=== PATIENT | female | born 1980 | race Caucasian/White ===

== ENCOUNTER → 2016-10-17 | Outpatient (REF) | payer OTHER | LOC: M SFHCWAGY 10:09 | PROVIDERS: ATTEND Nurse Practitioner Women's Health | DX: Z01.419 Encounter for gynecological examination (general) (routine) without abnormal findings (principal); Z11.51 Encounter for screening for human papillomavirus (HPV) ==

== ENCOUNTER → 2016-12-17 | Outpatient (REF) | payer OTHER ==
[~2016-12-17] MED LIST: CLAR1TAB2 PO; ORTHTAB15 PO
[2016-12-17 18:42] LABS: MEAN CORPUSCULAR VOLUME 94.1 fl (80.0-96.0); RED CELL DISTRIBUTION WIDTH 12.1 % (11.5-14.5); WHITE BLOOD COUNT 9.4 K/mm3 (4.0-10.0)
[2016-12-17 18:46] LABS: ALBUMIN 3.7 GM/DL (3.2-5.2); ALBUMIN/GLOBULIN RATIO 0.93 (1.00-1.93); ALKALINE PHOSPHATASE 65 U/L (45-117); ALT/SGPT 25 U/L (12-78); ANION GAP 10 MEQ/L (8-16); AST/SGOT 17 U/L (15-37); BILIRUBIN,TOTAL 0.3 MG/DL (0.2-1.0); BLOOD UREA NITROGEN 15 MG/DL (7-18); CALCIUM LEVEL 7.9 MG/DL (8.5-10.1); CARBON DIOXIDE LEVEL 25 MEQ/L (21-32); CHLORIDE LEVEL 107 MEQ/L (98-107); CHOLESTEROL LEVEL 172 MG/DL (<200); CREATININE FOR GFR 0.66 MG/DL (0.55-1.02); FREE T4 1.74 NG/DL (0.76-1.46); GLOMERULAR FILTRATION RATE > 60.0 (>60); GLUCOSE, FASTING 68 MG/DL (70-105); SODIUM LEVEL 142 MEQ/L (136-145); TOTAL PROTEIN 7.7 GM/DL (6.4-8.2); TRIGLYCERIDES LEVEL 118 MG/DL (<150)
== END ==
LOC: M SFHCLERA 14:44
PROVIDERS: ATTEND Family Medicine
DX: R53.83 Other fatigue (principal); R21 Rash and other nonspecific skin eruption; Z13.220 Encounter for screening for lipoid disorders

== ENCOUNTER → 2017-01-17 | Outpatient (CLI) | payer OTHER ==
--- NOTE | 2017-01-17 15:05 | REP ---
THYROID SONOGRAPHY: HISTORY: Borderline abnormal thyroid function tests FINDINGS: Thyroid isthmus measures 0.2 cm thickness. Right lobe dimensions are normal at 4.0 x 1.5 x 1.0 cm. The left thyroid lobe measures 4.3 x 2.1 x 1.8 cm. There is a 0.4 cm hypoechoic area in the lower pole of the right lobe consistent with a complex nodule. There is a colloid cyst containing some internal debris with overall dimensions of 3.9 x 1.5 x 1.6 cm in the left lobe. IMPRESSION: Large colloid cyst left thyroid lobe. No suspicious thyroid nodule. Signed by Aleksandar David MD 01/17/2017 03:53 P
== END ==
LOC: M LRY 14:05
PROVIDERS: ATTEND Family Medicine
DX: R94.6 Abnormal results of thyroid function studies (principal); E04.1 Nontoxic single thyroid nodule

== ENCOUNTER → 2017-03-21 | Outpatient (CLI) | payer OTHER ==
[2017-03-21 10:04] LABS: CONTROL LINE UCG INT CTR LINE PRESENT
== END ==
LOC: M LAB 09:15
PROVIDERS: ATTEND Orthopaedic Surgery
DX: Z01.812 Encounter for preprocedural laboratory examination (principal)

== ENCOUNTER 2017-03-26 05:52 | Day surgery (SDC) | payer OTHER ==
[~2017-03-26] VITALS: Ht 162.6 cm; Wt 88.9 kg
[2017-03-26] MEDS ORDERED: LIDOCAINE 1% MDV 20ML VIAL SQ PRN (06:00)
[2017-03-26] MEDS ORDERED: LR 1,000 ML IV SCH ×2 (06:00→10:30)
[2017-03-26] MEDS ORDERED: CelecoXIB 400 MG CAP PO ONE (06:00)
[2017-03-26] MEDS ORDERED: PERCOCET 5MG/325MG TAB PO ONE (06:15)
[2017-03-26] MEDS ORDERED: PREGABALIN 75 MG CAP(LYRICA) PO ONE (06:15)
[2017-03-26] MEDS ORDERED: THROMBIN SOLN 20,000 UNITS KIT As Ordered ONE (06:37)
[2017-03-26] MEDS ORDERED: BUPIVACAINE/EPIN 0.25% 30 ML VIAL As Ordered ONE (06:38)
[2017-03-26] MEDS ORDERED: BACITRACIN PWD 50,000 UNITS VIAL As Ordered ONE (06:38)
[2017-03-26 06:40] LABS: CONTROL LINE UCG INT CTR LINE PRESENT
[2017-03-26] MEDS ORDERED: GLYCOPYRROLATE INJ 0.2 MG/ML 2 ML VIAL As Ordered ONE ×2 (07:11→09:30)
[2017-03-26] MEDS ORDERED: ROCURONIUM BROMIDE 50 MG/5 ML VIAL/SYRINGE As Ordered ONE (07:11)
[2017-03-26] MEDS ORDERED: fentaNYL 100 MCG/2 ML INJECTION (J3010) As Ordered ONE (07:11)
[2017-03-26] MEDS ORDERED: PROPOFOL 200 MG/20 ML VIAL As Ordered ONE (07:11)
[2017-03-26] MEDS ORDERED: MIDAZOLAM INJ 2 MG/2 ML VIAL (J2250) As Ordered ONE (07:11)
[2017-03-26] MEDS ORDERED: dexameTHASONE 4 MG/ML 1ML VIAL (J1100) As Ordered ONE (08:07)
[2017-03-26] MEDS ORDERED: PHENYLEPHRINE INJ 10MG/ML VIAL (J2370) As Ordered ONE (08:09)
[2017-03-26] MEDS ORDERED: BUPIVACAINE HCL 0.5% 30 ML VIAL As Ordered ONE (09:22)
[2017-03-26] MEDS ORDERED: BUPIVACAINE LIPOSOME/PF 1.3% 20 ML VIAL (13.3MG/ML)(EXPAREL) As Ordered ONE (09:22)
[2017-03-26] MEDS ORDERED: ONDANSETRON 4MG/2ML VIAL (J2405) As Ordered ONE (09:30)
[2017-03-26] MEDS ORDERED: NEOSTIGMINE 10 MG/10 ML VIAL (J2710) As Ordered ONE (09:30)
[2017-03-26] MEDS ORDERED: HYDROmorphone HCL 2 MG/ML 1ML VIAL (J1170) As Ordered ONE (09:30)
[2017-03-26] MEDS ORDERED: D5W/LR 1,000 ML IV SCH (10:15)
[2017-03-26] MEDS ORDERED: PERCOCET 5MG/325MG TAB PO PRN ×3 (10:15→10:30)
[2017-03-26] MEDS ORDERED: PROMETHAZINE INJ 25 MG/ML VIAL (J2550) IV PRN (10:15)
[2017-03-26] MEDS ORDERED: HYDROmorphone HCL 1 MG/ML SYRINGE (J1170) IV PRN ×2 (10:30)
[2017-03-26] MEDS ORDERED: fentaNYL 100 MCG/2 ML INJECTION (J3010) IV PRN (10:30)
[2017-03-26] MEDS ORDERED: ONDANSETRON 4MG/2ML VIAL (J2405) IV PRN (10:30)
[2017-03-26 11:20] VITALS: BP 132/76
[2017-03-26 11:50] VITALS: BP 120/64
[2017-03-26 13:35] VITALS: BP 134/70
--- NOTE | 2017-03-26 13:40 | REP ---
Clinical: Intraoperative assessment. Technique: Prone cross-table lateral intraoperative view of the lumbar spine. Findings: Single intraoperative view of the lumbar spine demonstrates probe via posterior approach at the L4-5 interspinous level. Impression: Probe at the L4-5 interspinous level. Signed by Niko Bradley MD 03/26/2017 01:31 P
[2017-03-26 15:49] VITALS: BP 128/60
[2017-03-26] MEDS ORDERED: PREGABALIN 50 MG CAP (LYRICA) PO SCH (21:00)
[2017-03-27] MEDS ORDERED: CelecoXIB (CeleBREX) 100 MG CAP PO SCH (09:00)
--- NOTE | 2017-03-27 10:34 | RO ---
DATE OF PROCEDURE: 03/26/2017 PREOPERATIVE DIAGNOSIS: Right lower extremity radiculopathy secondary to right-sided disc bulge at L4-5. POSTOPERATIVE DIAGNOSIS: Right lower extremity radiculopathy secondary to right-sided disc bulge at L4-5. SURGEON: Osorio Lan MD FILAMENT [employer] FABRICATOR: Fermin Stewart PA-C ANESTHESIA: General. ESTIMATED BLOOD LOSS: Less than 40 mL, replaced with Crystalloid. COMPLICATIONS: None. PROCEDURE: Right L4-5 microdiscectomy. INDICATIONS: Sabi the 36-year-old female previous history of cauda equina syndrome secondary to large disc bulge. MEDICAL HISTORY: Significant for large disc herniation of L4-5 that resulted in cauda equina and subsequently decompressive surgery in 2004 time frame. She developed adjacent level disc herniation on the right of L4-5 and has elected for operative intervention. Consent reviewed in detail with the patient, including ignacio discussion of the pathology involved, the procedure proposed, alternatives, including doing nothing or epidural injections, risks including but not limited to pain, failure, incomplete relief, need for more surgery and other issues such as nerve injury, infection or other problems. The patient agreed to proceed. DESCRIPTION OF PROCEDURE: Identified holding area, site and side verified, brought to the operating room. General endotracheal anesthesia was administered. She was positioned for exposure of the lumbar spine in the Lucio frame. Knees were slightly flexed. Axillary rolls were utilized. Once I and the general machine operator were comfortable with the patient's positioning, she was sterilely prepped and draped in usual fashion. Time-out was accomplished. I stood on the patient's right, Mr. Stewart on the patient's left. The first portion of the procedure, I conducted using 3.5 loupe magnification. The incision was based on bony landmarks and her previous incision. The incision was infiltrated by Mr. Stewart with 0.25% Marcaine with epinephrine and then I made the incision with a 10 blade knife, developed down through skin and subcuticular tissues to the posterior lumbar fascia. Scarring was appreciated at the inferior aspect of the incision, which was approximately 6 cm long. Next, the posterior lumbar fascia was reflected off of the spinous process of 4 and 5 on the patient's right side, and I dissected the paraspinals along the lamina of 4 and over the L4-5 facet complex on the right side. Next, the high-speed bur was utilized to drill a divot into the lamina of L4 and Miranda-Chris probe was placed into the divot. A cross-table lateral x-ray was taken to verify the level using the probe. Next, once this was accomplished, my loupe and headlamp were removed and the operating microscope was brought in for additional portions of the procedure. Mr. Stewart looked through oculars on the left side of the scope and I through oculars on the right side of the scope, use of the scope facilitated safe use of the high-speed bur. The high-speed bur was utilized to implement a right unilateral laminotomy at the L4 level extending superiorly toward the bare area, preserving more than 70% of the L4-5 facet complex and inferiorly toward the bare area of 5. I elevated the ligamentum flavum with curved curette and then removed ligamentum flavum from the laminotomy using Kerrisons #2 and #3. The thecal sac was directly visualized. Using a Miranda-Chris, I swept the thecal sac medially exposing the disc herniation, which appeared to be over the shoulder. I then placed a suction Marshall, which Mr. Stewart assisted in placement of and retraction of. Bipolar cautery was utilized for hemostasis of epidurals around the disc bulge. An 11 blade knife was utilized to open posterior annulus. Relatively large disc extrusion was removed in piecemeal fashion using Canales pituitaries and pituitaries. A flat angled probe was utilized to probe the subannular space to make sure there was no more extruded viable disc material. Pituitaries were utilized in the interspace removing additional friable disc material. Bipolar cautery was utilized for hemostasis. Next, irrigation was accomplished. The wound was inspected for bleeding. No active bleeding was accomplished. Next, we did use Exparel 20 mL mixed with Marcaine 30 mL 0.5%. This was injected in along fascial planes around the wound for perioperative pain control. All counts were correct. All thrombin Gelfoam was removed at the conclusion the case. No active bleeding was appreciated at the conclusion of the case. Posterior lumbar fascia reapproximated with interrupted stitch. Deep dermis with interrupted stitch. Pernio dressing was utilized on skin. Next, the patient was then moved to the hospital bed, extubated, moved to recovery room in good condition moving all four extremities. For further details, please refer to medical record. Mr. Stewart was present and participated in the entirety case in capacity of assistant loan processor.
== END 2017-03-26 18:45 | disposition home or self-care (01) ==
LOC: M SDC 05:52 → M PED 11:01 → M SDC 18:45
PROVIDERS: ATTEND Orthopaedic Surgery
DX: M51.16 Intervertebral disc disorders with radiculopathy, lumbar region (principal); E04.1 Nontoxic single thyroid nodule; R06.83 Snoring; Z79.3 Long term (current) use of hormonal contraceptives; Z91.09 Other allergy status, other than to drugs and biological substances
CPT/HCPCS: 36415; 63030; 72110; 84703; 86850; 86900; 86901; 88304; 96374; 96376; J0690; J1100; J1170; J2250; J2370; J2405; J2710; J3010

== ENCOUNTER → 2017-04-17 | Outpatient (CLI) | payer OTHER | LOC: M LAB 10:59 | PROVIDERS: ATTEND Nurse Practitioner Family | DX: R94.6 Abnormal results of thyroid function studies (principal) ==

== ENCOUNTER → 2017-07-11 | Outpatient (CLI) | payer OTHER | LOC: M LRY 13:36 | DX: E04.1 Nontoxic single thyroid nodule (principal); R92.8 Other abnormal and inconclusive findings on diagnostic imaging of breast | CPT/HCPCS: 76536 ==

== ENCOUNTER → 2017-08-24 | Outpatient (CLI) | payer OTHER ==
[2017-08-24 13:29] LABS: BASO % 0.1 % (0.0-1.0); EOS # 0.3 10^3/uL (0.0-0.50); HEMATOCRIT 38.5 % (36.0-47.0); HEMOGLOBIN 12.6 g/dl (12.0-15.5); IMMATURE GRANULOCYTE % 0.3 % (0-3.0); LYMPH # 3.1 10^3/uL (1.5-4.5); LYMPH % 42.6 % (24.0-44.0); MEAN CORPUSCULAR HEMOGLOBIN 29.6 pg (27.0-33.0); MEAN CORPUSCULAR HGB CONC 32.7 g/dl (32.0-36.5); MEAN CORPUSCULAR VOLUME 90.6 fl (80.0-96.0); MONO # 0.6 10^3/uL (0.0-0.8); MONO % 7.9 % (0.0-5.0); NEUTROPHILS # 3.3 10^3/uL (1.8-7.7); NEUTROPHILS % 45.1 % (36.0-66.0); PLATELET COUNT, AUTOMATED 256 10^3/uL (150-450); RED BLOOD COUNT 4.25 10^6/uL (4.00-5.40); RED CELL DISTRIBUTION WIDTH 11.7 % (11.5-14.5); WHITE BLOOD COUNT 7.3 10^3/uL (4.0-10.0)
[2017-08-24 13:57] LABS: C REACTIVE PROTEIN QUANTITATIV 0.67 MG/DL (0.00-0.30)
[2017-08-24 14:02] LABS: ERYTHROCYTE SEDIMENTATION RATE 21 mm/hr (0-20)
== END ==
LOC: M LAB 12:57
DX: R76.8 Other specified abnormal immunological findings in serum (principal)
CPT/HCPCS: 84443

== ENCOUNTER → 2017-10-18 | Outpatient (REF) | payer OTHER | LOC: M SFHCWAGY 15:35 | DX: Z12.4 Encounter for screening for malignant neoplasm of cervix (principal) ==

== ENCOUNTER → 2017-12-21 | Outpatient (CLI) | payer OTHER | LOC: M LAB 09:41 | DX: E04.1 Nontoxic single thyroid nodule (principal) ==

== ENCOUNTER → 2017-12-28 | Outpatient (REF) | payer OTHER ==
[2017-12-28 19:44] LABS: FREE T4 1.12 NG/DL (0.76-1.46)
== END ==
LOC: M SFHCLERA 09:53
DX: R79.89 Other specified abnormal findings of blood chemistry (principal)

== ENCOUNTER → 2018-02-22 | Outpatient (REF) | payer OTHER ==
[2018-02-22 19:56] LABS: FREE T4 1.01 NG/DL (0.76-1.46)
== END ==
LOC: M SFHCLERA 09:15
DX: E03.9 Hypothyroidism, unspecified (principal); R53.81 Other malaise
CPT/HCPCS: 84443

== ENCOUNTER → 2018-10-30 | Outpatient (CLI) | payer OTHER ==
[~2018-10-30] MED LIST changes: +ORTH1TAB9 PO; -ORTHTAB15 PO
--- NOTE | 2018-10-30 16:38 | REPMRS ---
Patient History The patient states she had a clinical breast exam in 10/2018. Patient is nulliparous. No known family history of cancer. Taking hormonal contraceptives for 23 years beginning at age 15. Digital Woman Screen Mammo: October 30, 2018 - Exam #: [id number] Bilateral CC and MLO view(s) were taken. Technologist: Liseth Jay, Technologist No prior studies available for comparison. FINDINGS: The breast tissue is almost entirely fat. There is no evidence of dominant mass, architectural distortion, or grouped microcalcification typical of malignancy. Assessment: BI-RADS/ACR category 1 mammogram. Negative Mammogram. Recommendation Routine screening mammogram of both breasts in 1 year (for women over age 40). This patient's Lifetime Breast Cancer RIsk is estimated at 13.5 %. This mammogram was interpreted with the aid of an FDA-approved computer-aided dectection system. Electronically Signed By: Álvaro David MD 10/30/18 1273
== END ==
LOC: M WHC 15:25
PROVIDERS: ATTEND Nurse Practitioner Women's Health
DX: Z12.31 Encounter for screening mammogram for malignant neoplasm of breast (principal); Z79.3 Long term (current) use of hormonal contraceptives
CPT/HCPCS: 77067; G0463

== ENCOUNTER → 2018-11-10 | Outpatient (REF) | payer OTHER ==
[2018-11-10 13:31] LABS: FREE T4 1.22 NG/DL (0.76-1.46); THYROID STIMULATING HORMONE 6.07 uIU/ML (0.358-3.740)
== END ==
LOC: M SFHCLERA 08:33
PROVIDERS: ATTEND Family Medicine
DX: E03.9 Hypothyroidism, unspecified (principal)

== ENCOUNTER → 2019-01-13 | Outpatient (REF) | payer OTHER ==
[2019-01-13 20:37] LABS: FREE T4 1.26 NG/DL (0.76-1.46); THYROID STIMULATING HORMONE 4.25 uIU/ML (0.358-3.740)
[2019-01-13 20:41] LABS: HEMOGLOBIN A1c 5.4 %
== END ==
LOC: M SFHCLERA 16:54
PROVIDERS: ATTEND Family Medicine
DX: E03.9 Hypothyroidism, unspecified (principal); E66.9 Obesity, unspecified

== ENCOUNTER → 2019-07-09 | Outpatient (REF) | payer OTHER ==
[2019-07-09 12:38] LABS: FREE T4 0.97 NG/DL (0.76-1.46); THYROID STIMULATING HORMONE 7.5 uIU/ML (0.358-3.740)
== END ==
LOC: M SFHCLERA 08:13
PROVIDERS: ATTEND Family Medicine
DX: E03.9 Hypothyroidism, unspecified (principal)

== ENCOUNTER → 2019-10-15 | Outpatient (REF) | payer OTHER ==
[2019-10-15 16:42] LABS: FREE T4 0.99 NG/DL (0.76-1.46); THYROID STIMULATING HORMONE 5.47 uIU/ML (0.358-3.740)
== END ==
LOC: M SFHCLERA 11:05
PROVIDERS: ATTEND Family Medicine
DX: E03.9 Hypothyroidism, unspecified (principal)

== ENCOUNTER → 2019-11-03 | Outpatient (CLI) | payer OTHER ==
--- NOTE | 2019-11-03 16:59 | REPMRS ---
Patient History The patient states she had a clinical breast exam in October 2019. No known family history of cancer. Taking hormonal contraceptives for 23 years beginning at age 15. Digital Woman Screen Mammo: November 03, 2019 - Exam #: [id number] Bilateral CC and MLO view(s) were taken. Technologist: Marta Sanchez, Technologist Prior study comparison: October 30, 2018, bilateral digital woman screen mammo performed at [facility]. FINDINGS: The breast tissue is almost entirely fat. The Volpara volumetric breast density category is: A. There are stable intramammary lymph nodes bilaterally. There has been no change in the appearance of the mammogram from the prior studies. There is no interval development of dominant mass, architectural distortion, or grouped microcalcification typical of malignancy. 3-D tomosynthesis shows no additional findings. Assessment: BI-RADS/ACR category 2 mammogram. Benign Findings. Recommendation Routine screening mammogram of both breasts in 1 year (for women over age 40). This patient's Lifetime Breast Cancer RIsk is estimated at 13.4 %. This mammogram was interpreted with the aid of an FDA-approved computer-aided dectection system. Electronically Signed By: Álvaro David MD 11/03/19 0131
== END ==
LOC: M WHC 15:03
PROVIDERS: ATTEND Nurse Practitioner Women's Health
DX: Z12.31 Encounter for screening mammogram for malignant neoplasm of breast (principal)
CPT/HCPCS: 77063; 77067; G0463

== ENCOUNTER → 2020-07-23 | Outpatient (CLI) | payer OTHER ==
[2020-07-23 13:24] LABS: BASO % 0.4 % (0.0-1.0); EOS # 0.1 10^3/uL (0.0-0.5); EOS % 1.7 % (0.0-3.0); HEMATOCRIT 37.5 % (36.0-47.0); HEMOGLOBIN 12.4 g/dl (12.0-15.5); LYMPH # 3.1 10^3/uL (1.5-5.0); LYMPH % 45.3 % (24.0-44.0); MEAN CORPUSCULAR HEMOGLOBIN 30.5 pg (27.0-33.0); MEAN CORPUSCULAR HGB CONC 33.1 g/dl (32.0-36.5); MEAN CORPUSCULAR VOLUME 92.4 fl (80.0-96.0); MONO # 0.5 10^3/uL (0.0-0.8); MONO % 6.9 % (2.0-8.0); NEUTROPHILS # 3.1 10^3/uL (1.5-8.5); NEUTROPHILS % 45.4 % (36.0-66.0); PLATELET COUNT, AUTOMATED 242 10^3/uL (150-450); RED BLOOD COUNT 4.06 10^6/uL (4.00-5.40); WHITE BLOOD COUNT 6.9 10^3/uL (4.0-10.0)
[2020-07-23 13:54] LABS: BLOOD UREA NITROGEN 22 MG/DL (7-18); CARBON DIOXIDE LEVEL 29 MEQ/L (21-32); CHLORIDE LEVEL 109 MEQ/L (98-107); CHOLESTEROL LEVEL 158 MG/DL (<200); CHOLESTEROL RISK RATIO 2.821 (<5); CREATININE FOR GFR 0.63 MG/DL (0.55-1.30); FREE T4 1.23 NG/DL (0.76-1.46); GLOMERULAR FILTRATION RATE > 60.0 (>58); GLUCOSE, FASTING 82 MG/DL (70-100); HDL CHOLESTEROL 56 MG/DL (>40); LDL CHOLESTEROL 88 MG/DL (<100); NON-HDL-C 102 MG/DL; POTASSIUM SERUM 4.2 MEQ/L (3.5-5.1); SODIUM LEVEL 141 MEQ/L (136-145); TRIGLYCERIDES LEVEL 72 MG/DL (<150)
[2020-07-23 14:25] LABS: HEMOGLOBIN A1c 5.2 %
== END ==
LOC: M LAB 11:41
PROVIDERS: ATTEND Family Medicine
DX: E03.9 Hypothyroidism, unspecified (principal); E66.9 Obesity, unspecified; Z68.32 Body mass index [BMI] 32.0-32.9, adult

== ENCOUNTER → 2020-11-03 | Outpatient (CLI) | payer OTHER ==
--- NOTE | 2020-11-03 15:43 | REPMRS ---
Patient History The patient states she had a clinical breast exam in 11/2020. Patient is nulliparous. No known family history of cancer. Taking hormonal contraceptives for 24 years beginning at age 15. Patient states no breast complaints today. Patient has signed MRS History Sheet. Digital Woman Screen Mammo: November 03, 2020 - Exam #: [id number] Bilateral CC and MLO view(s) were taken. Technologist: Liseth Jay, Technologist Prior study comparison: November 03, 2019, bilateral digital woman screen mammo performed at [facility]. October 30, 2018, bilateral digital woman screen mammo performed at [facility]. FINDINGS: There are scattered fibroglandular densities. Screening. Digital screening (2D) mammography was performed bilaterally in the CC and MLO projections. Additionally, breast tomosynthesis (3D mammography) was performed bilaterally in the CC and MLO projections. Todays exam was compared to the prior exam/exams. By history, the patient has no complaints of a palpable breast abnormality or other significant breast complaints. The breasts are unchanged in size and shape. There are no amol-soft tissue densities or spiculated masses. There is no internal architectural distortion. Once again, stable benign appearing calcifications are seen.There are no suspicious amol-calcific clusters. Skin thickening or nipple retraction is not present. IMPRESSION: BI-RADS Category 2- Benign Findings. There is no evidence of malignant alteration of the breasts. Followup examination recommended in one year. The Volpara volumetric breast density category is B, there are scattered areas of fibroglandular densities. This mammogram was read with the assistance of [facility] [employer],an FDA approved computer aided detection system for mammography. The lifetime Tyrer-Cuzick score is 13.3 % Negative x-ray reports should not delay surgical consultation if a dominant or clinically suspicious mass is present. Not all breast cancers can be identified by mammography. Therefore, we recommend that you continue to perform regular breast self-examination and physical examination and then promptly contact your physician of any concerns or changes. Adenosis and dense breasts may obscure an underlying neoplasm. Assessment: BI-RADS/ACR category 2 mammogram. Benign Findings. Recommendation Routine screening mammogram of both breasts in 1 year. Electronically Signed By: Nba Munoz DO 11/03/20 1414
== END ==
LOC: M WHC 13:58
PROVIDERS: ATTEND Nurse Practitioner Women's Health
DX: Z12.31 Encounter for screening mammogram for malignant neoplasm of breast (principal); Z12.4 Encounter for screening for malignant neoplasm of cervix
CPT/HCPCS: 77063; 77067; 87624; G0123; G0463

== ENCOUNTER → 2020-11-03 | Outpatient (REF) | payer OTHER | LOC: M SFHCWAGY 19:13 | PROVIDERS: ATTEND Nurse Practitioner Women's Health | DX: Z12.4 Encounter for screening for malignant neoplasm of cervix (principal) ==

== ENCOUNTER → 2021-04-08 | Outpatient (CLI) | payer OTHER ==
[2021-04-08 10:26] LABS: FREE T4 1.34 NG/DL (0.76-1.46); THYROID STIMULATING HORMONE 2.36 uIU/ML (0.358-3.740)
== END ==
LOC: M LAB 08:45
PROVIDERS: ATTEND Family Medicine
DX: E03.9 Hypothyroidism, unspecified (principal)

== ENCOUNTER → 2021-10-10 | Outpatient (CLI) | payer OTHER ==
[2021-10-10 17:38] LABS: ALBUMIN 3.7 GM/DL (3.2-5.2); ALT/SGPT 28 U/L (12-78); BILIRUBIN,TOTAL 0.3 MG/DL (0.2-1.0); BLOOD UREA NITROGEN 20 MG/DL (7-18); CALCIUM LEVEL 9.2 MG/DL (8.5-10.1); CARBON DIOXIDE LEVEL 28 MEQ/L (21-32); CHLORIDE LEVEL 108 MEQ/L (98-107); CHOLESTEROL LEVEL 151 MG/DL (<200); CHOLESTEROL RISK RATIO 2.745 (<5); CREATININE FOR GFR 0.71 MG/DL (0.55-1.30); FREE T4 1.26 NG/DL (0.76-1.46); GLOMERULAR FILTRATION RATE > 60.0 (>58); GLUCOSE, FASTING 90 MG/DL (70-100); HDL CHOLESTEROL 55 MG/DL (>40); LDL CHOLESTEROL 79 MG/DL (<100); NON-HDL-C 96 MG/DL; POTASSIUM SERUM 3.7 MEQ/L (3.5-5.1); SODIUM LEVEL 141 MEQ/L (136-145); TOTAL PROTEIN 7.5 GM/DL (6.4-8.2); TRIGLYCERIDES LEVEL 84 MG/DL (<150)
[2021-10-10 17:50] LABS: BASO # 0.1 10^3/uL (0.0-0.2); BASO % 0.5 % (0.0-1.0); EOS # 0.2 10^3/uL (0.0-0.5); EOS % 2.4 % (0.0-3.0); HEMATOCRIT 37.4 % (36.0-47.0); HEMOGLOBIN 12.7 g/dl (12.0-15.5); LYMPH # 3.5 10^3/uL (1.5-5.0); LYMPH % 38.7 % (24.0-44.0); MEAN CORPUSCULAR HEMOGLOBIN 31.4 pg (27.0-33.0); MEAN CORPUSCULAR VOLUME 92.3 fl (80.0-96.0); MONO # 0.7 10^3/uL (0.0-0.8); MONO % 7.8 % (2.0-8.0); NEUTROPHILS # 4.6 10^3/uL (1.5-8.5); NEUTROPHILS % 50.4 % (36.0-66.0); PLATELET COUNT, AUTOMATED 298 10^3/uL (150-450); RED BLOOD COUNT 4.05 10^6/uL (4.00-5.40); WHITE BLOOD COUNT 9.1 10^3/uL (4.0-10.0)
[2021-10-10 19:14] LABS: HEMOGLOBIN A1c 4.9 %
== END ==
LOC: M LAB 16:07
PROVIDERS: ATTEND Student in an Organized Health Care Education/Training Program
DX: E03.9 Hypothyroidism, unspecified (principal); E66.9 Obesity, unspecified; Z79.899 Other long term (current) drug therapy

== ENCOUNTER → 2022-01-22 | Outpatient (CLI) | payer OTHER | LOC: M WHC 08:58 | PROVIDERS: ATTEND Obstetrics & Gynecology | DX: Z12.31 Encounter for screening mammogram for malignant neoplasm of breast (principal) ==

== ENCOUNTER → 2022-01-22 | Outpatient (REF) | payer OTHER | LOC: M PLALAB 11:36 | PROVIDERS: ATTEND Obstetrics & Gynecology | DX: Z01.419 Encounter for gynecological examination (general) (routine) without abnormal findings (principal) ==

== ENCOUNTER → 2022-09-01 | Outpatient (CLI) | payer OTHER ==
[2022-09-01 10:05] LABS: BLOOD UREA NITROGEN 15 MG/DL (9-23); CALCIUM LEVEL 8.6 MG/DL (8.5-10.1); CARBON DIOXIDE LEVEL 26 MMOL/L (20-31); CHLORIDE LEVEL 107 MMOL/L (98-107); CREATININE FOR GFR 0.65 MG/DL (0.55-1.30); GLOMERULAR FILTRATION RATE > 60.0 (>58); GLUCOSE, FASTING 94 MG/DL (60-100); POTASSIUM SERUM 3.9 MMOL/L (3.5-5.1); SODIUM LEVEL 139 MMOL/L (136-145)
== END ==
LOC: M LAB 08:59
PROVIDERS: ATTEND Student in an Organized Health Care Education/Training Program
DX: I10 Essential (primary) hypertension (principal)

== ENCOUNTER → 2022-12-22 | Outpatient (CLI) | payer OTHER ==
[2022-12-22 09:25] LABS: ALBUMIN 3.5 G/DL (3.2-5.2); ALKALINE PHOSPHATASE 57 U/L (46-116); ALT/SGPT 16 U/L (7.0-40); AST/SGOT 11 U/L (<34); BILIRUBIN,TOTAL 0.5 MG/DL (0.3-1.2); BLOOD UREA NITROGEN 12 MG/DL (9-23); CALCIUM LEVEL 8.6 MG/DL (8.5-10.1); CARBON DIOXIDE LEVEL 27 MMOL/L (20-31); CHLORIDE LEVEL 106 MMOL/L (98-107); CHOLESTEROL LEVEL 169 MG/DL (<200); CHOLESTEROL RISK RATIO 3.01 (<5); CREATININE FOR GFR 0.64 MG/DL (0.55-1.30); GLOMERULAR FILTRATION RATE > 60.0 (>58); GLUCOSE, FASTING 90 MG/DL (60-100); LDL CHOLESTEROL 92.6 MG/DL (<100); SODIUM LEVEL 140 MMOL/L (136-145); TOTAL PROTEIN 7.1 G/DL (5.7-8.2); TRIGLYCERIDES LEVEL 102 MG/DL (<150)
[2022-12-22 09:27] LABS: FREE T4 0.99 NG/DL (0.89-1.76); THYROID STIMULATING HORMONE 3.194 uIU/ML (0.55-4.78)
== END ==
LOC: M LAB 08:08
PROVIDERS: ATTEND Student in an Organized Health Care Education/Training Program
DX: I10 Essential (primary) hypertension (principal)

== ENCOUNTER → 2023-01-24 | Outpatient (CLI) | payer OTHER | LOC: M WHC 13:41 | PROVIDERS: ATTEND Obstetrics & Gynecology | DX: Z12.31 Encounter for screening mammogram for malignant neoplasm of breast (principal) ==

== ENCOUNTER → 2023-11-23 | Outpatient (CLI) | payer OTHER ==
[2023-11-23 09:11] LABS: BASO % 0.5 % (0.0-1.0); EOS # 0.3 10^3/uL (0.0-0.5); EOS % 4.5 % (0.0-3.0); HEMATOCRIT 37.2 % (36.0-47.0); HEMOGLOBIN 12.5 g/dl (12.0-15.5); LYMPH # 2.3 10^3/uL (1.5-5.0); LYMPH % 38.5 % (24.0-44.0); MEAN CORPUSCULAR HEMOGLOBIN 30.4 pg (27.0-33.0); MEAN CORPUSCULAR HGB CONC 33.6 g/dl (32.0-36.5); MEAN CORPUSCULAR VOLUME 90.5 fl (80.0-96.0); MONO # 0.5 10^3/uL (0.0-0.8); MONO % 7.8 % (2.0-8.0); NEUTROPHILS # 2.9 10^3/uL (1.5-8.5); NEUTROPHILS % 48.5 % (36.0-66.0); PLATELET COUNT, AUTOMATED 254 10^3/uL (150-450); RED BLOOD COUNT 4.11 10^6/uL (4.00-5.40); WHITE BLOOD COUNT 6.1 10^3/uL (4.0-10.0)
[2023-11-23 09:40] LABS: ALBUMIN 3.5 G/DL (3.2-5.2); ALKALINE PHOSPHATASE 59 U/L (46-116); ALT/SGPT 24 U/L (7.0-40); AST/SGOT 15 U/L (<34); BILIRUBIN,TOTAL 0.4 MG/DL (0.3-1.2); BLOOD UREA NITROGEN 15 MG/DL (9-23); CALCIUM LEVEL 8.8 MG/DL (8.5-10.1); CARBON DIOXIDE LEVEL 26 MMOL/L (20-31); CHLORIDE LEVEL 109 MMOL/L (98-107); CHOLESTEROL LEVEL 157 MG/DL (<200); CHOLESTEROL RISK RATIO 3.18 (<5); CREATININE FOR GFR 0.67 MG/DL (0.55-1.30); GLOMERULAR FILTRATION RATE > 60.0 (>58); GLUCOSE, FASTING 89 MG/DL (60-100); HDL CHOLESTEROL 49.3 MG/DL (>40); LDL CHOLESTEROL 91.5 MG/DL (<100); NON-HDL-C 107.7 MG/DL; POTASSIUM SERUM 4.4 MMOL/L (3.5-5.1); SODIUM LEVEL 141 MMOL/L (136-145); TOTAL PROTEIN 6.8 G/DL (5.7-8.2); TRIGLYCERIDES LEVEL 81 MG/DL (<150)
[2023-11-23 09:41] LABS: FREE T4 0.86 NG/DL (0.89-1.76); THYROID STIMULATING HORMONE 2.955 uIU/ML (0.55-4.78)
[2023-11-25 16:12] LABS: ANA SCREEN, IFA NEGATIVE (NEGATIVE)
== END ==
LOC: M LAB 08:16
PROVIDERS: ATTEND Nurse Practitioner Family
DX: I10 Essential (primary) hypertension (principal); R76.8 Other specified abnormal immunological findings in serum; E03.9 Hypothyroidism, unspecified; Z13.220 Encounter for screening for lipoid disorders

== ENCOUNTER → 2024-03-13 | Outpatient (CLI) | payer OTHER ==
[2024-03-13 18:30] LABS: THYROID STIMULATING HORMONE 2.206 uIU/ML (0.55-4.78)
[2024-03-13 18:32] LABS: FREE T4 1.03 NG/DL (0.89-1.76)
== END ==
LOC: M PLALAB 14:06
PROVIDERS: ATTEND Nurse Practitioner Family
DX: E03.9 Hypothyroidism, unspecified (principal)

== ENCOUNTER → 2024-03-23 | Outpatient (CLI) | payer OTHER | LOC: M WHC 13:41 | PROVIDERS: ATTEND Obstetrics & Gynecology | DX: Z12.31 Encounter for screening mammogram for malignant neoplasm of breast (principal); R92.313 Mammographic fatty tissue density, bilateral breasts | CPT/HCPCS: 77063; 77067; G0463 ==

== ENCOUNTER → 2024-03-23 | Outpatient (REF) | payer OTHER | LOC: M PLALAB 15:31 | PROVIDERS: ATTEND Obstetrics & Gynecology | DX: Z01.419 Encounter for gynecological examination (general) (routine) without abnormal findings (principal) ==

== ENCOUNTER → 2024-05-22 | Outpatient (CLI) | payer OTHER | LOC: M PLARAD 08:41 | PROVIDERS: ATTEND Orthopaedic Surgery | DX: M51.16 Intervertebral disc disorders with radiculopathy, lumbar region (principal); M51.362 Other intervertebral disc degeneration, lumbar region with discogenic back pain and lower extremity pain; M47.896 Other spondylosis, lumbar region ==

== ENCOUNTER → 2024-07-06 | Outpatient (CLI) | payer OTHER ==
[2024-07-06 18:15] LABS: BASO % 0.3 % (0.0-1.0); EOS # 0.2 10^3/uL (0.0-0.5); EOS % 2.5 % (0.0-3.0); HEMATOCRIT 40.3 % (36.0-47.0); HEMOGLOBIN 13.3 g/dl (12.0-15.5); LYMPH # 4.1 10^3/uL (1.5-5.0); LYMPH % 46.7 % (24.0-44.0); MEAN CORPUSCULAR HEMOGLOBIN 30.1 pg (27.0-33.0); MEAN CORPUSCULAR VOLUME 91.2 fl (80.0-96.0); MONO # 0.7 10^3/uL (0.0-0.8); MONO % 8.2 % (2.0-8.0); NEUTROPHILS # 3.7 10^3/uL (1.5-8.5); NEUTROPHILS % 42.2 % (36.0-66.0); PLATELET COUNT, AUTOMATED 285 10^3/uL (150-450); RED BLOOD COUNT 4.42 10^6/uL (4.00-5.40); WHITE BLOOD COUNT 8.8 10^3/uL (4.0-10.0)
[2024-07-06 18:19] LABS: THYROID STIMULATING HORMONE 2.634 uIU/ML (0.55-4.78)
[2024-07-06 18:21] LABS: ALBUMIN 3.6 G/DL (3.2-5.2); ALKALINE PHOSPHATASE 59 U/L (35-104); ALT/SGPT 20 U/L (7.0-40); AST/SGOT 17 U/L (<34); BILIRUBIN,TOTAL 0.2 MG/DL (0.3-1.2); BLOOD UREA NITROGEN 16 MG/DL (9-23); CALCIUM LEVEL 8.8 MG/DL (8.5-10.1); CARBON DIOXIDE LEVEL 28 MMOL/L (20-31); CHLORIDE LEVEL 105 MMOL/L (98-107); CREATININE FOR GFR 0.61 MG/DL (0.55-1.30); FREE T4 1.19 NG/DL (0.89-1.76); GLOMERULAR FILTRATION RATE > 60.0 (>58); GLUCOSE, FASTING 84 MG/DL (60-100); POTASSIUM SERUM 4.1 MMOL/L (3.5-5.1); SODIUM LEVEL 141 MMOL/L (136-145); TOTAL PROTEIN 7.6 G/DL (5.7-8.2)
[2024-07-06 18:23] LABS: THYROID PEROXIDASE ANTIBODY 29 U/ML (<60.0)
== END ==
LOC: M PLALAB 15:15
PROVIDERS: ATTEND Nurse Practitioner Family
DX: E03.9 Hypothyroidism, unspecified (principal)

== ENCOUNTER → 2024-12-19 | Outpatient (CLI) | payer OTHER ==
[2024-12-19 10:37] LABS: ALT/SGPT 20 U/L (7.0-40); AST/SGOT 20 U/L (<34); CALCIUM LEVEL 8.5 MG/DL (8.5-10.1); CARBON DIOXIDE LEVEL 26 MMOL/L (20-31); CHLORIDE LEVEL 107 MMOL/L (98-107); CHOLESTEROL LEVEL 162 MG/DL (<200); CHOLESTEROL RISK RATIO 3.05 (<5); CREATININE FOR GFR 0.64 MG/DL (0.55-1.30); GLOMERULAR FILTRATION RATE > 90.0 (>58); LDL CHOLESTEROL 94.0 MG/DL (<100); MAGNESIUM LEVEL 1.9 MG/DL (1.8-2.4); NON-HDL-C 109.0 MG/DL; POTASSIUM SERUM 3.9 MMOL/L (3.5-5.1); SODIUM LEVEL 144 MMOL/L (136-145); TRIGLYCERIDES LEVEL 75 MG/DL (<150)
[2024-12-19 10:39] LABS: TOTAL 25(OH) VITAMIN D 94.8 NG/ML (20.0-100.0)
[2024-12-19 10:40] LABS: FREE T4 1.02 NG/DL (0.89-1.76)
== END ==
LOC: M LAB 08:09 → M PLALAB 08:09
PROVIDERS: ATTEND Nurse Practitioner Family
DX: I10 Essential (primary) hypertension (principal); Z13.220 Encounter for screening for lipoid disorders; E55.9 Vitamin D deficiency, unspecified; E03.9 Hypothyroidism, unspecified

== ENCOUNTER → 2024-12-22 | Outpatient (CLI) | payer OTHER ==
[2024-12-22 19:05] LABS: BASO # 0.0 10^3/uL (0.0-0.2); BASO % 0.4 % (0.0-1.0); EOS # 0.2 10^3/uL (0.0-0.5); EOS % 2.8 % (0.0-3.0); LYMPH # 3.6 10^3/uL (1.5-5.0); LYMPH % 45.9 % (24.0-44.0); MONO # 0.6 10^3/uL (0.0-0.8); MONO % 8.1 % (2.0-8.0); NEUTROPHILS # 3.4 10^3/uL (1.5-8.5); NEUTROPHILS % 42.5 % (36.0-66.0); PLATELET COUNT, AUTOMATED 298 10^3/uL (150-450)
== END ==
LOC: M PLALAB 14:46
PROVIDERS: ATTEND Nurse Practitioner Family
DX: I10 Essential (primary) hypertension (principal)

== ENCOUNTER → 2025-03-24 | Outpatient (CLI) | payer OTHER | LOC: M WHC 15:14 | PROVIDERS: ATTEND Physician Assistant | DX: Z12.31 Encounter for screening mammogram for malignant neoplasm of breast (principal) ==

== ENCOUNTER → 2025-03-24 | Outpatient (REF) | payer OTHER ==
[2025-03-27 14:23] LABS: HPV APTIMA Not Detected (Not Detected)
== END ==
LOC: M SFHCWAGY 10:39
PROVIDERS: ATTEND Physician Assistant
DX: Z01.419 Encounter for gynecological examination (general) (routine) without abnormal findings (principal)
CPT/HCPCS: 87624; G0123

== ENCOUNTER 2025-04-26 08:52 | Day surgery (SDC) | payer OTHER ==
[~2025-04-26] VITALS: Ht 162.6 cm; Wt 89.8 kg
[~2025-04-26 08:52] MED LIST changes: +CETI10CA2 PO; +HYDR-3490 PO; +LEVO50TA5 PO; +SPRI28TA PO; +THERTAB52 PO
[2025-04-26 09:33] VITALS: TEMP 98.1
[2025-04-26 09:55] VITALS: BP 127/83; O2SAT 97
== END 2025-04-26 10:01 | disposition home or self-care (01) ==
LOC: M OPP 08:52
PROVIDERS: ATTEND Surgery
DX: Z12.11 Encounter for screening for malignant neoplasm of colon (principal); K64.0 First degree hemorrhoids; Z91.041 Radiographic dye allergy status; Z91.048 Other nonmedicinal substance allergy status; Z79.899 Other long term (current) drug therapy